=== PATIENT | male | born 1950 | race Caucasian/White ===

== ENCOUNTER 2025-06-29 14:13 | Day surgery (SDC) | payer BC, MEDICARE, OTHER ==
[2025-06-29] MEDS: Polymyxin B/Trimethoprim 10 ML Bottle EYERT SCH (14:32)
[2025-06-29] MEDS: Tropicamide 1% Ophth Soln 3 ML Bottle EYERT SCH (14:51)
[2025-06-29] MEDS: Tetracaine HCl/PF 0.5% 4 ML Bottle EYEBOTH SCH (15:52)
[2025-06-29] MEDS: Cefuroxime 10 MG/ML SYRINGE EYERT SCH (16:10)
[2025-06-29] MEDS: Lidocaine 1% PF 2 ML SDV INJECT SCH (16:10)
[2025-06-29] MEDS: Pilocarpine 4% Ophth Soln 15 ML Bot EYERT SCH (16:20)
== END 2025-06-29 16:26 ==
LOC: JD.SDS 14:13
PROVIDERS: ATTEND Ophthalmology
DX: H25.813 Combined forms of age-related cataract, bilateral (principal); H35.3132 Nonexudative age-related macular degeneration, bilateral, intermediate dry stage; H35.363 Drusen (degenerative) of macula, bilateral; H16.103 Unspecified superficial keratitis, bilateral; H16.223 Keratoconjunctivitis sicca, not specified as Sjogren's, bilateral; H18.413 Arcus senilis, bilateral; H02.831 Dermatochalasis of right upper eyelid; H02.834 Dermatochalasis of left upper eyelid; H57.813 Brow ptosis, bilateral; I10 Essential (primary) hypertension; Z79.899 Other long term (current) drug therapy
CPT/HCPCS: 66984; A9270; J0697; J2003; 00142; J3490; V2632

== ENCOUNTER 2025-07-27 14:04 | Day surgery (SDC) | payer BC, MEDICARE, OTHER ==
[2025-07-27] MEDS: Tetracaine HCl/PF 0.5% 4 ML Bottle EYEBOTH SCH (07:31)
[2025-07-27] MEDS: Lidocaine 1% PF 2 ML SDV INJECT SCH (07:31)
[2025-07-27] MEDS: Pilocarpine 4% Ophth Soln 15 ML Bot EYELF SCH (07:32)
[2025-07-27] MEDS: Cefuroxime 10 MG/ML SYRINGE EYELF SCH (07:32)
[2025-07-27] MEDS: Polymyxin B/Trimethoprim 10 ML Bottle EYELF SCH (07:32)
[2025-07-27] MEDS: Tropicamide 1% Ophth Soln 3 ML Bottle EYELF SCH (14:50)
== END 2025-07-27 16:41 | disposition home or self-care (01) ==
LOC: JD.SDS 14:04
PROVIDERS: ATTEND Ophthalmology
DX: H25.812 Combined forms of age-related cataract, left eye (principal); H16.231 Neurotrophic keratoconjunctivitis, right eye; I10 Essential (primary) hypertension; Z88.8 Allergy status to other drugs, medicaments and biological substances; Z96.1 Presence of intraocular lens; Z79.899 Other long term (current) drug therapy
CPT/HCPCS: 66984; A9270; J0697; J3490; V2632